=== PATIENT | female | born 1950 | race Caucasian/White ===

== ENCOUNTER → 2016-06-17 | Day surgery (SDC) | payer MEDICARE ==
[~2016-06-17] MED LIST: ASPI1TAB69 PO; FOLI1TAB4 PO; HYDR-3111 PO; LEVO100T5 PO; LIDOCAINE HCL 1% PF 30 ML VIAL INFIL ONE; LIOT5TAB3 PO; METO50TA PO; PROPOFOL 200 MG/20 ML AMP IV ONE; SIMV10TA PO; SODIUM CHLORIDE 0.9% 10 ML VIAL ONE; SPIR25TA PO; TRIAMCINOLONE ACETONIDE 40 MG/ML VIAL NB ONE; VITA100018 PO; methylPREDNISolone ACETATE 80 MG/ML VIAL ONE
--- NOTE | 2016-06-17 11:10 | M6 ---
cc: JOE GOINS M.D. DATE 06/17/2016 DATE OF 12/24/1951 PROCEDURE Fluoroscopically guided L5-S1 translaminar epidural steroid injection. PROCEDURE NOTE History and physical was completed and signed. Consent was signed. Procedure site was marked. Medications were listed and reconciled. Pain score was recorded. Allergies were noted. Time out was taken. Fluoroscopy time was recorded where applicable. Sedation was administered or directed by Dr. Goins. The patient was given oxygen. The patient was monitored by a registered nurse. Total procedure time was greater than 15 minutes. IV was started, blood pressure cuff, pulse oximeter and EKG were applied. The patient was placed in the prone position on a Pastor table sedated with small amounts of propofol titrated to effect. Vital signs were monitored and remained stable throughout the procedure. The lumbar area was prepped with alcohol and 10% Betadine solution and draped with sterile drapes. Fluoroscopy was used to visualize the L5-S1 translaminar space. The skin was infiltrated with 1% lidocaine. Then a 3-1/2-inch 18-gauge Ceballos needle was advanced using fluoroscopic guidance and the upkw-bc-mqllsevmhm technique into the epidural space at L5-S1 slightly to the right of the midline. There was negative aspiration for blood or any other type of fluid and the patient was given 10 mL of half percent Xylocaine, 80 mg of Depo-Medrol. Following this, the patient was taken to the recovery room with stable vital signs neurologically intact. W. MD LATONIA Cook/ULISSES /9:55 AM /11:06 AM
== END | disposition home or self-care (01) ==
LOC: PHSDC 08:27
PROVIDERS: ATTEND Pain Medicine Interventional Pain Medicine
DX: M54.5 Low back pain (principal); M79.606 Pain in leg, unspecified
CPT/HCPCS: 62323; 99152; J1040; J3301

== ENCOUNTER → 2016-11-03 | Day surgery (SDC) | payer MEDICARE ==
[~2016-11-03] MED LIST changes: +ASPI81CH CHEW; -FOLI1TAB4 PO; +LIDOCAINE HCL 1% 30 ML VIAL NERV BLOCK ONE; -LIDOCAINE HCL 1% PF 30 ML VIAL INFIL ONE; +MEPERIDINE HCL 25 MG/ML VIAL IV ONE; -TRIAMCINOLONE ACETONIDE 40 MG/ML VIAL NB ONE
--- NOTE | 2016-11-04 10:18 | M6 ---
cc: JOE GOINS M.D. DATE 11/03/2016 DATE OF 12/24/1951 PROCEDURE Fluoroscopically guided L5-S1 translaminar epidural steroid injection. PROCEDURE NOTE History and physical was completed and signed. Consent was signed. Procedure site was marked. Medications were listed and reconciled. Pain score was recorded. Allergies were noted. Time out was taken. Fluoroscopy time was recorded where applicable. Sedation was administered or directed by Dr. Goins. The patient was given oxygen. The patient was monitored by a registered nurse. Total procedure time was greater than 15 minutes. IV was started, blood pressure cuff, pulse oximeter and EKG were applied. The patient was placed in the prone position on a Pastor table sedated with small amounts of propofol titrated to effect. Vital signs were monitored and remained stable throughout the procedure. The lumbar area was prepped with alcohol and 10% Betadine solution and draped with sterile drapes. Fluoroscopy was used to visualize the L5-S1 translaminar space. The skin was infiltrated with 1% Xylocaine using a 27 gauge needle. Then a 3-1/2-inch 18-gauge Ceballos needle was advanced using fluoroscopic guidance in the rciz-me-mdeonkroou technique into the epidural space at L5-S1 slightly to the right of the midline. There was negative aspiration for blood or any other type of fluid and the patient was given 10 mL of half percent Xylocaine, 80 mg of Depo-Medrol. Following this, the patient was taken to the recovery room with stable vital signs neurologically intact. W. MD LATONIA Cook/ULISSES /8:57 AM /10:19 AM
== END | disposition home or self-care (01) ==
LOC: PHSDC 07:38
PROVIDERS: ATTEND Pain Medicine Interventional Pain Medicine
DX: M48.06 Spinal stenosis, lumbar region (principal); M54.16 Radiculopathy, lumbar region
CPT/HCPCS: 62323; 99152; J1040; J2175

== ENCOUNTER → 2017-02-22 | Day surgery (SDC) | payer MEDICARE ==
[~2017-02-22] MED LIST changes: -ASPI1TAB69 PO; -LIDOCAINE HCL 1% 30 ML VIAL NERV BLOCK ONE; +LIDOCAINE HCL 1% PF 30 ML VIAL INFIL ONE; -LIOT5TAB3 PO; +TRIAMCINOLONE ACETONIDE 40 MG/ML VIAL NERV BLOCK ONE
--- NOTE | 2017-02-22 11:13 | M6 ---
cc: JEO GOINS M.D. DATE: 02/22/2017 1950 PROCEDURE Fluoroscopically guided L5-S1 translaminar epidural steroid injection. History and physical was completed and signed. Consent was signed. Procedure site was marked. Medications were listed and reconciled. Pain score was recorded. Allergies were noted. Time out was taken. Fluoroscopy time was recorded where applicable. Sedation was administered or directed by Dr. Goins. The patient was given oxygen. The patient was monitored by a registered nurse. Total procedure time was greater than 15 minutes. IV was started, blood pressure cuff, pulse oximeter and EKG were applied. The patient was placed in the prone position on a Pastor table, sedated with small amounts of propofol titrated to effect. Vital signs were monitored and remained stable throughout the procedure. The lumbar area was prepped with alcohol and 10% Betadine solution and draped with sterile drapes. Fluoroscopy was used to visualize the L5-S1 interlaminar space. The skin was infiltrated with 1% Xylocaine using a 27 gauge needle, then a 3-1/2-inch 18-gauge Ceballos needle was advanced using fluoroscopic guidance and the juaf-wo-fqkgjxvlbv technique into the epidural space at L5-S1, slightly to the right of the midline. There was negative aspiration for blood or any other type of fluid and the patient was given 10 mL of 0.5% Xylocaine 80 mg of Depo-Medrol. Following this the patient was taken to the recovery room with stable vital signs, neurologically intact. WMD LATONIA Merida/ALBINO /10:55 AM /11:02 AM
== END | disposition home or self-care (01) ==
LOC: PHSDC 08:54
PROVIDERS: ATTEND Pain Medicine Interventional Pain Medicine
DX: M54.9 Dorsalgia, unspecified (principal); M79.662 Pain in left lower leg
CPT/HCPCS: 62323; 99152; J1040; J2175; J3301; 62321

== ENCOUNTER → 2017-07-06 | Day surgery (SDC) | payer MEDICARE ==
[~2017-07-06] MED LIST changes: +ASPI-516 CHEW; -ASPI81CH CHEW; +HYDR-3580 PO; +LIDOCAINE HCL 1% 30 ML VIAL NERV BLOCK ONE; -LIDOCAINE HCL 1% PF 30 ML VIAL INFIL ONE; -MEPERIDINE HCL 25 MG/ML VIAL IV ONE; -PROPOFOL 200 MG/20 ML AMP IV ONE; +PROPOFOL 200 MG/20 ML AMP IV PUSH ONE; -TRIAMCINOLONE ACETONIDE 40 MG/ML VIAL NERV BLOCK ONE
--- NOTE | 2017-07-06 10:03 | M6 ---
cc: Ranjit Goins MD 07/06/2017 PROCEDURE: Fluoroscopically-guided L5-S2 interlaminar epidural steroid injection. History and physical was completed and signed. Consent was signed. Procedure site was marked. Medications were listed and reconciled. Pain score was recorded. Allergies were noted. Time out was taken. Fluoroscopy time was recorded where applicable. Sedation was administered or directed by Dr. Goins. The patient was given oxygen. The patient was monitored by a registered nurse. Total procedure time was greater than 15 minutes. IV was started. Blood pressure cuff, pulse oximeter, and EKG were applied. The patient was placed in the prone position on the Pastor table, sedated with small amounts of propofol, titrated to effect. Vital signs were monitored and remained stable throughout the procedure. The lumbar area was prepped with alcohol and 10% Betadine solution, draped with sterile drapes. Fluoroscopy was used to visualize the L5-S1 interlaminar space. The skin was infiltrated with 1% Xylocaine. Using a 27 gauge needle, then a 3-1/2 inch 18 gauge Ceballos needle was advanced using fluoroscopic guidance and the loss of resistance technique into the epidural space at L5-S1 slightly to the right of the midline. There was negative aspiration for blood or any type of fluid and the patient was given 8 mL of 0.5% Xylocaine, 80 mg of Depo-Medrol. Following this, the patient was taken to the recovery room with stable vital signs, neurologically intact. She will be evaluated immediately and with followup to determine if she has a subjective decrease in her usual pain and a corresponding objective increase in her functional capability. Ranjit Goins MD [facility] , 09:28 AM , 10:02 AM
== END | disposition home or self-care (01) ==
LOC: PHSDC 07:37
PROVIDERS: ATTEND Pain Medicine Interventional Pain Medicine
DX: M54.5 Low back pain (principal)
CPT/HCPCS: 62323; 99152; J1040